=== PATIENT | female | born 1990 | race Caucasian/White ===

== ENCOUNTER 2018-10-03 12:08 | Emergency (ER) | payer MEDICAID, OTHER ==
[~2018-10-03] VITALS: Ht 162.6 cm; Wt 77.3 kg
[~2018-10-03 12:08] MED LIST: IBUP-1542 PO; PREN-39 PO
[2018-10-03 12:18] VITALS: Ht 162.6 cm; Wt 77.3 kg
[2018-10-03] MEDS ORDERED: ACETAMINOPHEN 325 MG TAB PO ONE (15:30)
[2018-10-03] MEDS ORDERED: ALBUTEROL 0.083% (NEB) 2.5 MG/3 ML AMP HHN STA (16:15)
[2018-10-03] MEDS ORDERED: DEXAMETHASONE 10 MG/ML 1 ML INJ IM ONE (16:30)
[2018-10-03] MEDS ORDERED: ALBU18HF INHALATION (17:06)
[2018-10-03] MEDS ORDERED: DOXY100T20 PO (17:06)
[2018-10-03] MEDS ORDERED: IBUP-1542 PO (17:06)
--- NOTE | 2018-10-03 17:09 | ERD ---
ER Documentation Chief Complaint Chief Complaint cough x 2 mos, back pain and leg pain, took ATB already HPI 27-year-old female presents with a cut off for the last 2 months. She is pleuri tic upper back pain. She has productive mucus. She is taking antibiotics twice in the last 2 months. She took a Z-Pavan and another unspecified antibiotics. She denies any chest pain, vomiting, abdominal pain, additional complaints. She denies any known wheezing. ROS All systems reviewed and are negative except as per history of present illness. Medications Home Meds Active Scripts Albuterol Sulfate* (Ventolin HFA*) 18 Gm Hfa.aer.ad, 2 PUFF INHALATION Q4H for 7 Days, #1 INHALER Prov:IQRA MOBLEY MD 10/03/18 Ibuprofen* (Motrin*) 600 Mg Tab, 600 MG PO Q6, #15 TAB Prov:IQRA MOBLEY MD 10/03/18 Doxycycline Hyclate* (Doxycycline Hyclate*) 100 Mg Tablet.dr, 100 MG PO BID for 7 Days, TAB Prov:IQRA MOBLEY MD 10/03/18 Ibuprofen* (Ibuprofen*) 600 Mg Tab, 600 MG PO Q6, #20 0 Refills Prov:SONI PATTERSON MD 05/05/15 Reported Medications Vits W-Ca,Fe,Fa(<1MG) ( Vitamins) 1 Tab Tablet, 1 TAB PO DAILY 05/04/15 Allergies Allergies: Coded Allergies: No Known Allergy (Unverified , 05/03/15) PMhx/Soc Medical and Surgical Hx: pt denies Medical Hx, pt denies Surgical Hx Hx Alcohol Use: No Hx Substance Use: No Hx Tobacco Use: No Smoking Status: Never smoker FmHx Family History: No diabetes, No coronary disease, No other Physical Exam Vitals Vital Signs Date Temp Pulse Resp B/P (MAP) Pulse Ox O2 O2 Flow FiO2 Time Delivery Rate 10/03/18 89 20 98 21 16:38 10/03/18 38.1 15:14 10/03/18 100.6 94 20 127/68 97 12:18 (87) Physical Exam Const: No acute distress Head: Atraumatic Eyes: Normal Conjunctiva ENT: Normal External Ears, Nose and Mouth. TMs and oropharynx normal. Neck: Full range of motion. No meningismus. Resp: Clear to auscultation bilaterally. Prolonged expiratory phase with rhonchi. No rales or retractions. Cardio: Regular rate and rhythm, no murmurs Abd: Soft, non tender, non distended. Normal bowel sounds Skin: No petechiae or rashes Back: No midline or flank tenderness Ext: No cyanosis, or edema Neur: Awake and alert Psych: Normal Mood and Affect Results 24 hrs Current Medications Medications Dose Sig/Cara Start Time Status Last (Trade) Ordered Route PRN Stop Time Admin Dose Reason Admin 650 mg ONCE ONCE 10/03/18 DC 10/03/18 Acetaminophen PO 15:30 15:14 (Tylenol 10/03/18 15:31 Tab) 10 mg ONCE ONCE 10/03/18 DC 10/03/18 Dexamethasone IM 16:30 16:10 (Decadron) 10/03/18 16:31 Albuterol 2.5 mg ONCE STAT 10/03/18 DC 10/03/18 (Proventil HHN 16:15 16:37 0.083% (Neb)) 10/03/18 16:16 Procedures/MDM Chest X-ray 1V Interpreted by me: Soft Tissue: No acute abnormalities Bones: No acute abnormalities Mediastinum/Cardiac Silhouette/Lungs: No acute abnormalities. Impression- normal 1 view chest x-ray Influenza swab negative. Patient given Decadron 10 mg IM and albuterol treatment for prolonged respiratory phase and minimal forced wheeze. Patient presents with low-grade temperature and cough for last 2 months. May new viral illness but given duration will treat empirically with doxycycline, Ventolin, continued ibuprofen, primary care follow-up and return precautions. She has no signs of hypoxemia, respiratory distress. The patient was stable with no new complaints during the ER course. Clinically, there is no current evidence to suggest meningitis, sepsis, acute abdomen, pneumonia, stroke, acute coronary syndrome, pulmonary embolism, aortic dissection or any other emergent condition appearing to require further evaluation or hospitalization. Patient counseled regarding my diagnostic impression and care plan. Prior to discharge all questi ons answered. Pt agrees with treatment plan and understands strict return precautions. Pt is instructed to follow up with primary care provider within 24- 48 hours. Precautionary instructions provided including instructions to return to the ER if not improving or for any worsening or changing symptoms or concerns. Departure Diagnosis: Primary Impression: Cough Condition: Stable Patient Instructions: Bronchitis With Wheezing (Adult) Additional Instructions: X-ray normal. Influenza swab negative. We will treat for bronchitis. May be lingering viral illness. Recheck for new or worsening symptoms with primary care doctor. IQRA MOBLEY MD Oct 03, 2018 17:09
[2018-10-03 17:14] VITALS: BP 127/68; PULSE 70; RESP 18
== END 2018-10-03 17:14 | disposition home or self-care (01) ==
LOC: FTE 12:08
DX: R05 Cough (principal)
CPT/HCPCS: 71045; 87400; 94664; 96372; J1100; Z7502; Z7610